=== PATIENT | female | born 1980 | race Two or more races ===

== ENCOUNTER 2022-03-26 15:06 | Outpatient (REF) | payer OTHER, SELFPAY ==
--- NOTE | ~2022-03-26 | XR_ITS ---
EXAMINATION: XR BILATERAL WRIST CLINICAL INFORMATION: Pain bilateral hand. COMPARISON: None. TECHNIQUE: 4 views each hand. FINDINGS: Left Hand: There is minimal loss of PIP and DIP joint spaces without any bony erosive changes or periarticular spurring. No acute fracture or dislocation or subluxation seen. The soft tissues are normal. Right Hand: There is no visible acute fracture, dislocation or subluxation seen. The PIP and DIP joint spaces are minimally reduced without any bony erosive changes, loose bodies or spurring. The soft tissues are normal. XR/XR hand wrist LT IMPRESSION: Minimal loss of PIP and DIP joint spaces in both hands without erosive changes or spurring. No acute fracture or dislocation seen.
--- NOTE | ~2022-03-26 | XR_ITS ---
EXAMINATION: XR BILATERAL WRIST CLINICAL INFORMATION: Pain bilateral hand. COMPARISON: None. TECHNIQUE: 4 views each hand. FINDINGS: Left Hand: There is minimal loss of PIP and DIP joint spaces without any bony erosive changes or periarticular spurring. No acute fracture or dislocation or subluxation seen. The soft tissues are normal. Right Hand: There is no visible acute fracture, dislocation or subluxation seen. The PIP and DIP joint spaces are minimally reduced without any bony erosive changes, loose bodies or spurring. The soft tissues are normal. XR/XR hand wrist RT IMPRESSION: Minimal loss of PIP and DIP joint spaces in both hands without erosive changes or spurring. No acute fracture or dislocation seen.
[2022-03-26 15:24] LABS: MANUAL DIFF FLAG NO
[2022-03-26 15:54] LABS: Basophils Absolute Auto 0.1 X10*3/uL (0.0-0.2); Eosinophils Absolute Auto 0.2 X10*3/uL (0.0-0.4); Eosinophils Percent Auto 2.2 % (0-4); Hematocrit 36.1 % (37.0-47.0); Hemoglobin 12.3 g/dl (12.0-16.0); Imm Gran Abs Auto 0.02 X10*3/uL (0.00-0.03); Imm Gran Pct Auto 0.3 % (0.0-0.4); Lymphocytes Absolute Auto 2.2 X10*3/uL (1.2-4.9); Lymphocytes Percent Auto 30.3 % (20-40); Mean Corpuscular HGB Conc 34.1 g/dl (31.0-35.0); Mean Corpuscular Hemoglobin 30.8 pg (27.0-33.0); Mean Corpuscular Volume 90.3 fL (80.0-98.0); Mean Platelet Volume 9.8 fL (9.4-12.3); Monocytes Absolute Auto 0.5 X10*3/uL (0.1-1.2); Monocytes Percent Auto 7.3 % (2-11); Neutrophils Absolute Auto 4.2 x10*3/uL (2.0-8.3); Neutrophils Percent Auto 58.9 % (45-73); Platelet Count 260 X10*3/uL (160-400); Red Cell Distribution Width 12.8 % (11.0-16.0); White Blood Count 7.1 X10*3/uL (4.8-10.8)
[2022-03-26 16:19] LABS: Alanine Aminotransferase 7 U/L (0-31); Albumin Level 4.2 g/dL (3.5-5.0); Alkaline Phosphatase 61 U/L (39-117); Anion Gap 14 (12-20); Aspartate Amino Transferase 12 U/L (5-31); Bilirubin Total 0.4 mg/dL (0.0-1.0); Blood Urea Nitrogen 14 mg/dL (9-16); C Reactive Protein 0.23 mg/dL (< or = 0.50); Calcium 8.8 mg/dL (8.4-10.2); Carbon Dioxide 24 mmol/L (22-29); Chloride 109 mmol/L (96-108); Estimated Glomerular Filt Rate > 60; Glucose Random 84 mg/dL (60-115); Potassium 4.6 mmol/L (3.3-5.1); Rheumatoid Factor < 15.0 IU/mL (<15.0); Sodium 142 mmol/L (135-145); Total Protein 6.8 g/dL (6.5-8.0)
[2022-03-26 16:38] LABS: Thyroid Stimulating Hormone 3.57 uIU/mL (0.32-4.0)
[2022-03-26 16:41] LABS: Erythrocyte Sedimentation Rate 7 MM/HR (0-20)
[2022-03-26 16:47] LABS: Appearance Urine Clear; Color Urine Yellow; Glucose Urine UA Negative (Negative); Leukocyte Esterase Urine Negative (Negative); Nitrite Urine Negative (Negative); PH 5.5 (5.0-9.0); Specific Gravity - Urine 1.025 (1.005-1.025); UMIC TRIGGER UA YES; Urine Blood Small (1+) (Negative); Urine Ketones Trace mg/dL (Negative); Urine Protein Negative (Neg-Trace)
[2022-03-26 17:04] LABS: Creatinine Urine 195.96 mg/dL; Protein/Creatinine Ratio, Ur 0.07 (<0.2); Total Protein Urine Random 14 mg/dL (<12)
[2022-03-26 17:54] LABS: Bacteria Urine None Seen (None Seen); Hyaline Casts Urine 0-2 /LPF (0-2); RBC Urine 0-2 /HPF (0-2); Squamous Epithelial Cell Urine 0-2 /HPF (0-2); WBC Urine 0-5 /HPF (0-5)
[2022-03-27 04:03] LABS: HBS Num1 12.35 mIU/mL (0-7.99); HBc Num1 0.71 S/CO (0.00-0.79); HBsAGNum1 0.13 S/CO (0.00-0.99); Hepatitis A Antibody IgM 0.53 Index (0-0.79); Hepatitis B Core Antibody Nonreactive (Nonreactive); Hepatitis B Surface Antigen Negative (Negative); ~HepC Num1 0.11 S/CO (0.00-0.79); ~Hepatitis A Antibody IgM Nonreactive (Nonreactive); ~Hepatitis B Surface Antibody REACTIVE (Nonreactive); ~Hepatitis C Antibody Nonreactive (Nonreactive)
[2022-03-27 14:26] LABS: Complement C3 52 mg/dL (83-193)
[2022-03-30 15:47] LABS: Cyclic Citrullinated Peptide <16 UNITS
[2022-03-31 07:43] LABS: Anti DNA DS Antibody <1 IU/mL; Antibody to SS-A Antigen <1.0 NEG AI (<1.0 NEG); Antibody to SS-B Antigen <1.0 NEG AI (<1.0 NEG); SM/Ribonucleoprotein Ab <1.0 NEG AI (<1.0 NEG); Scleroderma 70 Antibody <1.0 NEG AI (<1.0 NEG); Smith Protein <1.0 NEG AI (<1.0 NEG)
[2022-03-31 14:02] LABS: Anti-Centromere B Antibodies <1.0 NEG AI (<1.0 NEG)
[2022-04-01 13:17] LABS: Anti Nuclear Antibody Screen POSITIVE (NEGATIVE); Anti Nuclear Antibody Titer 1:40 titer
[2022-04-02 14:56] LABS: Vitamin D 25-OH, D2 <4 ng/mL; Vitamin D 25-OH, D3 11 ng/mL; Vitamin D 25-OH, Total 11 ng/mL (30-100)
== END 2022-03-26 15:07 | disposition home or self-care (01) ==
LOC: HO.LAB 15:06
PROVIDERS: PCP Nurse Practitioner Family; Visit Provider Student in an Organized Health Care Education/Training Program
DX: Z11.59 Encounter for screening for other viral diseases (principal); Z13.21 Encounter for screening for nutritional disorder; R53.83 Other fatigue; M25.542 Pain in joints of left hand; M25.541 Pain in joints of right hand
CPT/HCPCS: 36415; 73110; 73130; 80053; 81001; 82306; 82550; 84156; 84443; 85025; 85652; 86038; 86039; 86140; 86160; 86200; 86225; 86235; 86431; 86704; 86706; 86709; 86803; 87340

== ENCOUNTER 2022-06-08 14:47 | Outpatient (REF) | payer OTHER, SELFPAY ==
[2022-06-09 19:18] LABS: Complement C3 109 mg/dL (83-193)
== END 2022-06-08 14:48 | disposition home or self-care (01) ==
LOC: HO.LAB 14:47
PROVIDERS: Visit Provider Student in an Organized Health Care Education/Training Program
DX: R76.8 Other specified abnormal immunological findings in serum (principal)
CPT/HCPCS: 36415; 86160

== ENCOUNTER → 2022-06-09 14:43 | Outpatient (BNVA) | payer OTHER, SELFPAY | PROVIDERS: PCP Nurse Practitioner Family; Visit Provider Student in an Organized Health Care Education/Training Program | DX: M79.7 Fibromyalgia (principal) ==

== ENCOUNTER 2022-07-07 15:06 | Outpatient (REF) | payer OTHER, SELFPAY ==
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
== END 2022-07-07 15:07 | disposition home or self-care (01) ==
LOC: HO.MRI 15:06
PROVIDERS: PCP Nurse Practitioner Family; Visit Provider Student in an Organized Health Care Education/Training Program
DX: M54.12 Radiculopathy, cervical region (principal)
CPT/HCPCS: 72141

== ENCOUNTER → 2022-07-13 09:20 | Outpatient (BNVA) | payer OTHER, SELFPAY | PROVIDERS: PCP Nurse Practitioner Family; Visit Provider Internal Medicine | DX: Z13.89 Encounter for screening for other disorder (principal) ==

== ENCOUNTER 2024-01-20 18:37 | Outpatient (REF) | payer BC, SELFPAY ==
--- NOTE | ~2024-01-20 | MR_ITS ---
EXAMINATION: MR BRAIN WITHOUT CONTRAST MR CERVICAL SPINE WITHOUT CONTRAST CLINICAL INFORMATION: Headaches, neck pain, evaluate for disc herniation. COMPARISON: MRI cervical spine 07/07/2022. TECHNIQUE: MRI of the brain and cervical spine was obtained using routine sequences without contrast. FINDINGS: MRI BRAIN: There is no reduced diffusion to suggest acute infarct. Susceptibility weighted sequence is within normal limits. No mass effect, extra-axial collection, midline shift, or other herniation. The ventricles and sulci are normal in size and configuration. Scattered periventricular and subcortical T2/FLAIR hyperintense foci with a frontal lobe predominance are indeterminate but may be seen in the setting of chronic migraines or early chronic microvascular ischemic change. Intracranial flow voids are preserved. Trace paranasal sinus mucosal thickening. The mastoid air cells are well aerated. No focal expansile or destructive osseous lesion. MRI CERVICAL SPINE: Straightening of the normal cervical lordosis with dextrocurvature of the cervical spine. Trace anterolisthesis of C3-C4. Cervical vertebral body heights are maintained. No expansile or destructive osseous lesion. The cervical spinal cord is normal in signal intensity. C2-C3: No significant spinal canal or neural foraminal stenosis. C3-C4: Mild asymmetric right-sided uncovertebral spurring. The spinal canal and neural foramen are not significantly narrowed. C4-C5: There is a right central/subarticular disc osteophyte complex which asymmetrically indents the right ventral thecal sac. Mild spinal canal stenosis. Asymmetric right-sided uncovertebral arthropathy without significant neural foraminal stenosis. C5-C6: Disc osteophyte complex with right subarticular disc protrusion that indents the right frontal thecal sac with mild spinal canal stenosis. The neural foramen are patent. Uncovertebral arthropathy. C6-C7: No significant spinal canal or neural foraminal stenosis. C7-T1: Facet arthropathy. The spinal canal and neural foramen are patent. MR/MR cervical spine wo con IMPRESSION: Scattered periventricular and subcortical T2/FLAIR hyperintense foci with a frontal lobe predominance are indeterminate but may be seen in the setting of chronic migraines or early chronic microvascular ischemic change. Degenerative changes at C4-C5 and C5-C6 overall appear comparable to the prior examination. No high-grade spinal canal or neural foraminal stenosis.
== END 2024-01-20 18:38 | disposition home or self-care (01) ==
LOC: HO.MRI 18:37
PROVIDERS: PCP Nurse Practitioner Family; Visit Provider Psychiatry & Neurology Neurology
DX: G43.709 Chronic migraine without aura, not intractable, without status migrainosus (principal); G93.49 Other encephalopathy; M54.12 Radiculopathy, cervical region
CPT/HCPCS: 70551; 72141

== ENCOUNTER 2025-05-29 09:45 | Outpatient (AMB) | payer OTHER, SELFPAY ==
--- NOTE | 2025-05-29 09:59 | MHC.OFFVIS ---
Intake Visit Reasons: migraine f/u Allergies benzonatate (From Tessalon Perles) Adverse Reaction (Intermediate, Verified 07/13/22 09:26) Unknown sulfamethoxazole (From Bactrim) Adverse Reaction (Intermediate, Verified 07/13/22 09:26) Unknown trimethoprim (From Bactrim) Adverse Reaction (Intermediate, Verified 07/13/22 09:26) Unknown Medication List - Last Reconciled 05/29/25 by Dillon Cheek MD amitriptyline 150 mg PO BEDTIME naproxen 500 mg PO BID rizatriptan take 1 tab at onset of headache; if no relief may repeat 1 tab after at least 2 hrs; max = 3 tabs/24 hr PO topiramate 100 mg PO BID tramadol ER 200 mg PO BID HPI Comments Details: Less stress. Migraines 3-4/ wk and can last 2 days and may have to be in bed. This is inspite of 3 prophylactic drugs being used now ( Emgality, Topamax and Amitriptyline at max doses). Tried Nurtec qod. In the past, she had been on verapamil SR 240 mg a day and Propranolol. Botox did help. Last Botox 01/25/24. Her mouth hurts and can't talk, nausea and vomiting, dizzy with vertigo on getting up, and photophobic. Also gets pain in right neck, chest and goes into right hand with tingling and hurts. Stress triggers migraines and she is stressed from divorce and custody but now has full custody. Gets a visual and smell aura. Sleeping better in last few days but otherwise gets 2-3 hrs. BROTHERS are associated with nausea, vomiting, photophobia and sonophobia. She has been using Percocet and Axert when necessary. ? Lot of pain on the right side from the shoulder to finger tips which tingle. left thumb pain. [facility] Medical History (Updated 05/29/25 @ 10:18 by Dillon Cheek MD) Fibromyalgia, primary Migraine Anxiety Major depressive disorder Surgical History H/O wisdom tooth extraction S/P carpal tunnel release Hx of tonsillectomy Family History Mother Anxiety and depression Kidney disease Migraine Maternal Grandmother Hypertension Maternal Grandmother Diabetes Stroke Family/Other Diabetes Hypertension Breast cancer Colon cancer Sister Migraine Social History Household Members Other:: Son Alcohol intake: current Alcohol intake frequency: a few times a month Patient Tobacco Use Status: Never used Tobacco Current occupational status: employed 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 Difficulty getting to sleep?admits.? Difficulty maintaining sleep?admits.? Urge to move legs?denies.? Teeth grinding?denies.? Shouting or Kicking during sleep?denies.? Abnormal behavior during sleep?denies.? Excessive sleep?denies.? Snoring?denies.? Daytime sleepiness?denies.? ?? General/Constitutional:? Change in appetite?denies.? Chills?denies.? Fatigue?admits.? Fever?denies.? Weight gain?denies.? Weight loss?denies.? ?? Respiratory:? Shortness of breath?denies.? Chest pain?denies.? Cough?denies.? ?? Cardiovascular:? Chest pain at rest?denies.? Chest pain with exertion?denies.? Claudication?denies.? Dizziness?denies.? Fluid accumulation in the legs?denies.? Irregular heartbeat?denies.? Palpitations?denies.? ?? Gastrointestinal:? Abdominal pain?denies.? Constipation?admits.? Diarrhea?denies.? Difficulty swallowing?denies.? Heartburn?denies.? Nausea?denies.? Rectal bleeding?denies.? ?? Genitourinary:? Frequent urination?denies.? Urgency?denies.? Incontinence?denies.? Erectile Dysfunction?denies.? ?? Musculoskeletal:? Neck pain?admits.? Back pain?denies.? Muscle aches?admits.? Painful joints?admits.? Sciatica?denies.? Weakness?denies.? ?? Neurologic:? Difficulty swallowing?denies.? Balance difficulty?denies.? Coordination?normal.? Difficulty speaking?denies.? Dizziness?admits.? Fainting?denies.? Gait abnormality?denies.? Headache?that is chronic.? Loss of strength?denies.? Loss of use of extremity?denies.? Low back pain?denies.? Memory loss?admits.? Seizures?denies.? Tics?denies.? Tingling/Numbness?denies.? Transient loss of vision?denies.? Tremor?denies.? ?? Psychiatric:? Anxiety?admits.? Auditory/visual hallucinations?denies.? Delusions?denies.? Depressed mood?denies.? Stressors?admits.? Substance abuse?denies.? Suicidal thoughts?denies.? ?? Physical Exam Neuro Other: General Examination: ? GENERAL APPEARANCE:?normal,?in no acute distress.? HEART:?S1, S2 normal,?no murmurs.? LUNGS:?clear anteriorly and posteriorly.? MUSCULOSKELETAL:?normal.? EXTREMITIES:?no edema.? PSYCH:?alert, oriented,?cognitive function intact,?cooperative with exam.? Neurological: ? Abnormal neurological findings:??none.? Mental Status:?alert and oriented X 3,?Normal attention, orientation, memory and affect.? Cranial Nerves:?Pupils are equal, round and reactive to light. Fundoscopy shows normal disc bilaterally. External occular muscles are intact. Visual abdi are full, no ptosis. Face is symmetrical, no facial weakness or droop. Facial sensations are normal. Tongue protrudes in midline. Palate elevates symmetrically. Shoulder shrugging is normal..? Motor Examination:?Normal muscle tone, bulk and strength,?No atrophy or fasciculations,?No drift of the extended upper extremities,?Deep tendon reflexes are 2+?,?Plantars are flexor?.? Straight Leg Raising:?90 degrees.? Sensory Exam:?Normal light touch, temperature, pinprick, vibration and joint-position sensations?,?Rhomberg sign is absent.? Coordination:?no ataxia,?no titubation,?gzsnsk-sg-qkmf, pafz-aato-bwcg test and rapid alternating movements were normal.? Gait Exam:?Within normal limits.? Cerebellar Signs:?Gzfkvp-[id number] and zuzg-op-grdj is normal,?no dysdiadochokinesia?.? Extrapyramidal System:?No tremor, rigidity with normal facial expressions,?No bradykinesia, no bradyphrenia. Normal arm swing and posture. No propulsion or retropulsion.? Speech:?Normal,?no dysphasia or dysarthria..? Mini Mental Status Exam: ? Level of Consciousness:?Alert.? Orientation:?Knows correct year, month, date, day and season,?Knows correct city, county and state. Knows correct location and floor.? Registration:?Able to register 3 objects.? Attention:?Serial 7's performed accurately.? Recall:?Able to recall 3 out of 3 objects.? Language:?Normal spontaneous speech, fluency, repetition,naming, comprehension, reading and writing.? Total Score:?30/30.? Assessment & Plan Assessment & Plan (1) Chronic migraine w/o aura w/o status migrainosus, not intractable: Code(s): G43.709 - Chronic migraine without aura, not intractable, without status migrainosus Category: Medical (2) MRI of brain abnormal: Comment: Mild non specific white matter [facility] Code(s): R90.89 - Other abnormal findings on diagnostic imaging of central nervous system Category: Medical (3) Cervical radiculopathy due to degenerative joint disease of spine: Comment: 01/25/24 MRI C spine: C4-C5: There is a right central/subarticular disc osteophyte complex which asymmetrically indents the right ventral thecal sac. Mild spinal canal stenosis. Asymmetric right-sided uncovertebral arthropathy without significant neural foraminal stenosis. C5-C6: Disc osteophyte complex with right subarticular disc protrusion that indents the right frontal thecal sac with mild spinal canal stenosis. The neural foramen are patent. Uncovertebral arthropathy. Code(s): M47.22 - Other spondylosis with radiculopathy, cervical region Category: Medical (4) Peripheral neuropathy: Code(s): G62.9 - Polyneuropathy, unspecified Category: Medical Plan NCV/ EMG upper an dlower limbs. Pain clinic referral for Cervical epidural. Approval for 3 monthly Botox 200 units for chronic migraines > 20 days a month. Failed 5 different prophylactics Orders: Orders NE nerve conduction velocity Today G62.9 - Polyneuropathy, unspecified, M47.22 - Other spondylosis with radiculopathy, cervical region NE electromyogram (EMG) Today G62.9 - Polyneuropathy, unspecified, M47.22 - Other spondylosis with radiculopathy, cervical region AMB Botulinum toxin Injection Today G43.709 - Chronic migraine without aura, not intractable, without status migrainosus Referrals Pain Management Referral M47.22 - Other spondylosis with radiculopathy, cervical region Medications: New onabotulinumtoxinA 200 units IM ONCE 1 ea 0RF Chronic migraine G43.709 - Chronic migraine without aura, not intractable, without status migrainosus Coding Level of Care Code Est Pt Level 5 (75965) Diagnoses Chronic migraine w/o aura w/o status migrainosus, not intractable G43.709 MRI of brain abnormal R90.89 Cervical radiculopathy due to degenerative joint disease of spine M47.22 Peripheral neuropathy G62.9
== END 2025-05-29 10:29 | disposition home or self-care (01) ==
PROVIDERS: PCP Nurse Practitioner Family; Visit Provider Psychiatry & Neurology Neurology
DX: G43.709 Chronic migraine without aura, not intractable, without status migrainosus (principal); R90.89 Other abnormal findings on diagnostic imaging of central nervous system; M47.22 Other spondylosis with radiculopathy, cervical region; G62.9 Polyneuropathy, unspecified
CPT/HCPCS: 99215